=== PATIENT | female | born 2000 | race Caucasian/White ===

== ENCOUNTER 2022-03-12 23:45 | Emergency (ER) | payer OTHER ==
[~2022-03-12] VITALS: Ht 175.3 cm; Wt 95.3 kg
[2022-03-13] MEDS ORDERED: IV NS 0.9% 500 ML BAG IV ONE
[2022-03-13] MEDS ORDERED: ONDANSETRON HCL/PF 4 MG/2 ML VIAL IVP ONE
--- NOTE | 2022-03-13 00:04 | NUR ---
[facility] FROM [facility] TO ER BED 16. AAOX4. NOT IN RESP DISTRESS. AMBULATORY. BROUGHT IN FOR A SEIZURE THAT LASTED 2 MIN. PER PT, SHE WAS ABOUT TO GO TO SLEEP, FELT AN AURA, TOOK AN ATIVAN BUT SHE CANT RECALL THE DOSE AND THE SEIZURE HAPPENED. PT WAS NOTED WITH TRAUMA AT THE TIP OF TONGUE. PT REPORTS THAT SHE IS COMPLIANT WITH HER MEDICATION REGIMEN. SEIZURE PRECAUTION INPLACE.
[2022-03-13] MEDS ORDERED: ONDANSETRON HCL/PF 4 MG/2 ML VIAL ONE (00:05)
--- NOTE | 2022-03-13 00:11 | NUR ---
SUSIE CARTY AT BEDSIDE FOR EKG
--- NOTE | 2022-03-13 00:12 | NUR ---
COMMUNICATIONS BILLING ANALYST AT PT'S BEDSIDE
[2022-03-13] MEDS ORDERED: IBUPROFEN 400 MG TABLET ONE (00:21)
[2022-03-13 00:25] LABS: BASOPHILS % (AUTO) 0.3 % (0.0-2.0); EOSINOPHILS % (AUTO) 3.1 % (0.0-6.0); HEMATOCRIT 39 % (33-45); HEMOGLOBIN 13.1 g/dL (11.5-14.8); LYMPHOCYTES # (AUTO) 2.5 K/uL (0.8-4.8); LYMPHOCYTES % (AUTO) 17.5 % (20.0-44.0); MEAN CORPUSCULAR HGB CONC 34 g/dl (31.0-36.0); MEAN CORPUSCULAR VOLUME 86 fL (82-100); MONOCYTES # (AUTO) 0.6 K/uL (0.1-1.30); MONOCYTES % (AUTO) 4.1 % (2.0-12.0); NEUTROPHILS # (AUTO) 10.6 K/uL (1.8-8.9); PLATELET COUNT (AUTO) 310 K/uL (150-450); RED BLOOD CELL COUNT(AUTO) 4.49 MIL/uL (4.0-5.2); WHITE BLOOD COUNT (AUTO) 14.2 K/uL (4.3-11.0)
[2022-03-13] MEDS ORDERED: IBUPROFEN 400 MG TABLET PO ONE (00:30)
[2022-03-13 00:32] LABS: CALCIUM, SERUM 8.2 mg/dL (8.5-10.1); CARBON DIOXIDE 25 mmol/L (21-32); CHLORIDE 104 mmol/L (98-107); CREATININE 0.8 mg/dL (0.6-1.3); GLUCOSE 118 mg/dL (74-106); POTASSIUM 3.4 mmol/L (3.5-5.1); SODIUM SERUM 137 mmol/L (136-145); UREA NITROGEN, BLOOD 10 mg/dL (7-18)
[2022-03-13 00:39] LABS: ALANINE AMINOTRANSFERASE 26 U/L (12-78); ALBUMIN 3.5 g/dL (3.4-5.0); ALKALINE PHOSPHATASE 99 U/L (46-116); ASPARTATE AMINOTRANSFERASE 18 U/L (15-37); BILIRUBIN,DIRECT 0.1 mg/dL (0.0-0.2); BILIRUBIN,TOTAL 0.3 mg/dL (0.2-1.0); TOTAL PROTEIN, SERUM 6.6 g/dL (6.4-8.2)
[2022-03-13 00:40] LABS: ALCOHOL, BLOOD < 3 mg/dL (0-0)
[2022-03-13 01:19] LABS: BILIRUBIN,URINE NEGATIVE (NEGATIVE); COLOR,URINE YELLOW (YELLOW); LEUKOCYTE ESTERASE ,URINE NEGATIVE (NEGATIVE); NITRITE, URINE NEGATIVE (NEGATIVE); PROTEIN,URINE NEGATIVE (NEGATIVE); UGLUCOSE NEGATIVE (NEGATIVE); UROBILINOGEN,URINE 0.2 EU/dL (0.2)
[2022-03-13 01:21] LABS: BACTERIA,URINE Rare /HPF (None Seen); RBC,URINE 0-2 /HPF (0-2); SQUAMOUS EPITHELIAL CELL,UR Few /HPF (None Seen); WBC,URINE 0-2 /HPF (0-3)
[2022-03-13 01:24] VITALS: BP 114/77
--- NOTE | 2022-03-13 01:24 | NUR ---
Patient discharged to home in stable condition. Written and verbal after care instructions given. Patient verbalizes understanding of instruction.
== END 2022-03-13 01:37 | disposition home or self-care (01) ==
LOC: ER 23:49
DX: G40.909 Epilepsy, unspecified, not intractable, without status epilepticus (principal); R94.31 Abnormal electrocardiogram [ECG] [EKG]; Z88.6 Allergy status to analgesic agent; Z60.2 Problems related to living alone
CPT/HCPCS: 99285; 93005; 71045; 36415; 96374; 96361; 85025; 80048; 80076; 84703; 81001; 82962 ×2; 80320; 80307; J2405; J7040; G0480